=== PATIENT | female | born 1965 | race Caucasian/White ===

== ENCOUNTER 2020-04-22 16:08 | Observation (INO) | payer MEDICAID ==
[2020-04-22] MEDS ORDERED: Sodium Chloride 0.9% 10 ML Syringe FLUSH PRN (16:15)
[2020-04-22] MEDS ORDERED: Acetaminophen 325 MG Tab PO PRN (16:15)
[2020-04-22] MEDS ORDERED: Sodium Chloride 0.9% 1,000 ML IV SCH (16:30)
[2020-04-22] MEDS: Potassium Chloride Riders 20 MEQ in Premix Bag 1 BAG IV SCH ×2 (17:04→18:17)
[2020-04-22] MEDS: Folic Acid 1 MG Tab PO SCH (17:10)
[2020-04-22] MEDS: Potassium Chloride 10 MEQ Tab.ER PO SCH (17:10)
[2020-04-22] MEDS: Thiamine 100 MG Tab PO SCH (17:10)
--- NOTE | 2020-04-22 17:12 | PCM.HP.2 ---
H&P History of Present Illness - General Date of Service: 04/22/20 Admit Problem/Dx: Admission Diagnosis/Problem Admission Diagnosis/Problem Hypokalemia Source of Information: Patient History Limitations: Reports: No Limitations - History of Present Illness Initial Comments - Free Text/Narative: Tricia is a 54 yr old female who came into the clinic today for a wellness exam. S he had complaints of: bilateral leg aching keeping her awake at night, bloating to abdomen with loss of appetite and post prandial nausea, pruritic rash to back, and weight loss. She has known alcoholism and she reports stopping drinking 2 weeks ago. On exam she has jaundice, hepatomegaly, ascites, and dermatitis. Lab studies show: PT 15.5, INR 1.4, Lipase 172, Blood Alcohol 0, Gluc 123, K 2.5, Na 137, Albumin 2.8, Alk Phos 228, AST 104, ALT 22, Total Bili 7.6, renal function WNL, Mag 1.7, WBC 11.1, RBC 2.8, Hgb 10.3, MCV 105.7, MCHC 34. Pending labs include GGTP, Vit B12, Ferritin, TSH, Vit D. She moved to [place] from [place] to live with her parents. Today she indicates she is moving to [place] to live with her sister. 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 She has a dog she is concerned about his care as he is over 80 lbs in the care of her elderly parents tonight. Onset of Symptoms: Reports: Gradual Duration of Symptoms: Reports: Chronic, Getting Worse Location: Reports: Other Quality: Reports: Ache Severity: Moderate Improves with: Reports: None Worsens with: Reports: None Context: Reports: Other Associated Symptoms: Reports: Loss of Appetite, Nausea/Vomiting, Rash - Related Data Allergies/Adverse Reactions: Allergies Allergy/AdvReac Type Severity Reaction Status Date / Time No Known Allergies Allergy Verified 04/01/19 13:41 Home Medications: Home Meds Ibuprofen [Motrin] 600 mg PO Q4HR PRN 04/01/19 [History] Triamcinolone Acetonide [Kenalog 0.1% Crm] 1 applic BID PRN 04/01/19 [History] Past Medical History Genitourinary History: Reports: Other (See Below) Other Genitourinary History: dysfuncitonal uterine bleeding Psychiatric History: Reports: Addiction Dermatologic History: Reports: Other (See Below) Other Dermatologic History: rash Social & Family History - Family History Cardiac: Reports: Hypertension, Pacemaker Respiratory: Reports: Sleep Apnea - Living Situation & Occupation Living situation: Reports: Occupation: Unemployed (living with parents currently) H&P Review of Systems - Review of Systems: Review Of Systems: See Below General: Reports: Malaise, Decreased Appetite, Weight Loss HEENT: Reports: No Symptoms Pulmonary: Reports: No Symptoms Cardiovascular: Reports: No Symptoms Gastrointestinal: Reports: Abdominal Pain, Decreased Appetite, Distension, Nausea Genitourinary: Reports: No Symptoms Musculoskeletal: Reports: Leg Pain Skin: Reports: Jaundice Psychiatric: Reports: Other (alcohol abuse, stopped 2 weeks ago) Neurological: Reports: No Symptoms Hematologic/Lymphatic: Reports: Other (epistaxis) Immunologic: Reports: No Symptoms Exam - Exam Exam: See Below - Exam General: Alert, Oriented, Cooperative HEENT: Conjunctiva Clear, EACs Clear, Hearing Intact, Mucosa Moist & [place] Neck: Supple, Trachea Midline Lungs: Clear to Auscultation, Normal Respiratory Effort Cardiovascular: Regular Rate, Regular Rhythm, Normal S1, Normal S2 GI/Abdominal Exam: Normal Bowel Sounds, Soft, Distended, Hepatomegaly Extremities: Normal Inspection, Normal Range of Motion, Non-Tender, No Pedal Edema, Normal Capillary Refill, Leg Pain, Mottled Peripheral Pulses: 2+: Dorsalis Pedis (L), Dorsalis Pedis (R) Skin: Warm, Dry, Intact Neurological: Normal Gait, Normal Speech Neuro Extensive - Mental Status: Alert, Oriented x3, Normal Mood/Affect, Normal Cognition, Memory Intact Neuro Extensive - Motor, Sensory, Reflexes: Normal Gait *Q Meaningful Use (ADM) - VTE *Q VTE Anticoagulation Contraindications: Med/TX Not Indicated/Need - Problem List (1) Hypokalemia SNOMED Code(s): 71156757 ICD Code: E87.6 - HYPOKALEMIA Status: Acute Priority: High Current Visit: Yes (2) Cirrhosis of liver SNOMED Code(s): 11254959 ICD Code: K74.60 - UNSPECIFIED CIRRHOSIS OF LIVER Status: Chronic Priority: Medium Current Visit: Yes Qualifiers: Hepatic cirrhosis type: alcoholic cirrhosis Ascites presence: with ascites Qualified Code(s): K70.31 - Alcoholic cirrhosis of liver with ascites (3) Leg pain, diffuse SNOMED Code(s): 65321564 ICD Code: M79.606 - PAIN IN LEG, UNSPECIFIED Status: Chronic Priority: Medium Current Visit: Yes Qualifiers: Laterality: unspecified laterality Qualified Code(s): M79.606 - Pain in leg, unspecified (4) Psoriasis SNOMED Code(s): 7738103 ICD Code: L40.9 - PSORIASIS, UNSPECIFIED Status: Chronic Priority: Low Current Visit: Yes Problem List Initiated/Reviewed/Updated: Yes Orders Last 24hrs: Active Orders 24 hr Category Date Time Status Patient Status [ADT] Routine ADT 04/22/20 16:15 Ordered Cardiac Monitoring [RC] CONTINUOUS Care 04/22/20 16:17 Ordered EKG 12 Lead [EKG Documentation Completion] [RC] STAT Care 04/22/20 16:21 Ordered Notify Provider Vital Signs [RC] ASDIRECTED Care 04/22/20 16:17 Ordered Oxygen Therapy [RC] PRN Care 04/22/20 16:15 Ordered Up ad Adelina [RC] ASDIRECTED Care 04/22/20 16:15 Ordered VTE/DVT Education [RC] PER UNIT ROUTINE Care 04/22/20 16:15 Ordered Vital Signs [RC] Q4H Care 04/22/20 16:15 Ordered Regular Diet [DIET] Diet 04/22/20 Dinner Ordered CBC WITH AUTO DIFF [HEME] AM Lab 04/23/20 05:11 Ordered COMPREHENSIVE METABOLIC PN,CMP [CHEM] AM Lab 04/23/20 05:11 Ordered CULTURE BLOOD [BC] Stat Lab 04/22/20 16:20 Ordered CULTURE BLOOD [BC] Stat Lab 04/22/20 16:20 Ordered POTASSIUM,K [CHEM] Timed Lab 04/22/20 22:00 Ordered Acetaminophen [TylenoL] Med 04/22/20 16:15 Ordered 650 mg PO Q4H PRN Folic Acid Med 04/23/20 08:00 Ordered 1 mg PO DAILY Gabapentin [Neurontin] Med 04/22/20 20:00 Ordered 300 mg PO BID Nicotine [Habitrol] Med 04/23/20 08:00 Ordered 21 mg TRDERM DAILY Potassium Chloride Riders [KCL in Water 20 MEQ/50 ML] Med 04/22/20 16:30 Ordered 20 meq Premix Bag 1 bag IV Q2H Potassium Chloride [Klor-Con 10] Med 04/22/20 18:00 Ordered 40 meq PO BIDMEALS Sodium Chloride 0.9% @ 150 MLS/HR (1000ml) Med 04/22/20 16:30 Ordered Sodium Chloride 0.9% [Normal Saline] 1,000 ml IV ASDIRECTED Sodium Chloride 0.9% [Saline Flush] Med 04/22/20 16:15 Ordered 10 ml FLUSH ASDIRECTED PRN Thiamine [Vitamin B-1] Med 04/22/20 20:00 Ordered 100 mg PO BEDTIME Triamcinolone Acetonide [Triamcinolone Acetonide 0.1% Med 04/22/20 20:00 Ordered Crm] 15 gm TOP BID Anticoagulation Contraindications VTE [AST] Per Unit Oth 04/22/20 16:15 Ordered Routine Blood Culture x2 Reflex Set [OM.PC] Stat Ot 04/22/20 16:15 Ordered Saline Lock Insert [OM.PC] Routine Oth 04/22/20 16:15 Ordered Resuscitation Status Routine Resus Stat 04/22/20 16:15 Ordered Medication Orders Acetaminophen (Tylenol) 650 mg PO Q4H PRN PRN Reason: Pain (Mild 1-3)/fever Folic Acid (Folic Acid) 1 mg PO DAILY [facility] Gabapentin (Neurontin) 300 mg PO BID [facility] Potassium Chloride 20 meq/ (Premix) 50 mls @ 50 mls/hr IV Q2H [facility] Stop: 04/22/20 19:29 Sodium Chloride (Normal Saline) 1,000 mls @ 150 mls/hr IV ASDIRECTED [facility] Last Admin: 04/22/20 16:45 Dose: 150 mls/hr Documented by: DEPRROW Nicotine (Habitrol) 21 mg TRDERM DAILY@1800 [facility] Potassium Chloride (Klor-Con 10) 40 meq PO BIDMEALS [facility] Sodium Chloride (Saline Flush) 10 ml FLUSH ASDIRECTED PRN PRN Reason: Keep Vein Open Thiamine HCl (Vitamin B-1) 100 mg PO DAILY [facility] Triamcinolone Acetonide (Triamcinolone Acetonide 0.1% Crm) 0 gm TOP BID [facility] Assessment/Plan Comment:: She is admitted Observation Status to replace potassium and monitor her telemetry while doing so. KCL 20 mEq IV x 2 tonight. KCL 40 mEq orally BID (2 doses tonight). Check Potassium level at 10 pm and repeat lab in AM. EKG Start Gabapentin for leg pain. Blood cultures. Get RUQ US on out pt if not available now. I contacted [facility] who had no further recommendations. Stop alcohol and recheck lab in 2 weeks. Anticipate DC tomorrow on oral K. - Mortality Measure Prognosis:: Good
--- NOTE | 2020-04-22 17:40 | PCM.HP.2 ---
H&P History of Present Illness - General Date of Service: 04/22/20 Admit Problem/Dx: Admission Diagnosis/Problem Admission Diagnosis/Problem Hypokalemia Source of Information: Patient History Limitations: Reports: No Limitations - History of Present Illness Onset of Symptoms: Reports: Gradual Duration of Symptoms: Reports: Chronic, Getting Worse Location: Reports: Other Quality: Reports: Ache Severity: Severe Improves with: Reports: None Worsens with: Reports: None Context: Reports: Other Associated Symptoms: Reports: Loss of Appetite, Malaise, Nausea/Vomiting, Rash - Related Data Allergies/Adverse Reactions: Allergies Allergy/AdvReac Type Severity Reaction Status Date / Time No Known Allergies Allergy Verified 04/01/19 13:41 Home Medications: Home Meds Ibuprofen [Motrin] 600 mg PO Q4HR PRN 04/01/19 [History] Triamcinolone Acetonide [Kenalog 0.1% Crm] 1 applic BID PRN 04/01/19 [History] Past Medical History Genitourinary History: Reports: Other (See Below) Other Genitourinary History: dysfuncitonal uterine bleeding Psychiatric History: Reports: Addiction Dermatologic History: Reports: Other (See Below) Other Dermatologic History: rash Social & Family History - Family History Cardiac: Reports: Hypertension, Pacemaker Respiratory: Reports: Sleep Apnea - Living Situation & Occupation Living situation: Reports: Occupation: Unemployed (living with parents currently) H&P Review of Systems - Review of Systems: Review Of Systems: See Below General: Reports: Malaise, Fatigue, Decreased Appetite, Weight Loss HEENT: Reports: No Symptoms Pulmonary: Reports: No Symptoms Cardiovascular: Reports: No Symptoms Gastrointestinal: Reports: Abdominal Pain, Anorexia, Decreased Appetite, Distension, Nausea Genitourinary: Reports: No Symptoms Musculoskeletal: Reports: Leg Pain Skin: Reports: Jaundice, Pruritis, Rash Psychiatric: Reports: Other (alcohol abuse) Neurological: Reports: No Symptoms Hematologic/Lymphatic: Reports: Easy Bleeding, Other (epistaxis) Immunologic: Reports: No Symptoms Exam - Exam Exam: See Below - Vital Signs Vital Signs: Last Vital Signs Temp 36.7 C 04/22/20 16:21 Pulse 88 04/22/20 16:21 Resp 16 04/22/20 16:21 BP 105/60 04/22/20 16:21 Pulse Ox 100 04/22/20 16:21 Weight: 55.61 kg - Exam General: Alert, Oriented, Cooperative HEENT: Conjunctiva Clear, EACs Clear, Hearing Intact Neck: Supple, Trachea Midline Lungs: Clear to Auscultation, Normal Respiratory Effort Cardiovascular: Regular Rate, Regular Rhythm, Normal S1, Normal S2 GI/Abdominal Exam: Normal Bowel Sounds, Soft, Distended, Hepatomegaly Extremities: Normal Inspection, Normal Range of Motion, Non-Tender, No Pedal Edema, Normal Capillary Refill, Mottled Peripheral Pulses: 2+: Dorsalis Pedis (L), Dorsalis Pedis (R) Skin: Warm, Dry, Intact, Rash Neurological: Normal Gait, Normal Speech Neuro Extensive - Mental Status: Alert, Oriented x3, Normal Mood/Affect, Normal Cognition, Memory Intact Neuro Extensive - Motor, Sensory, Reflexes: Normal Gait Psychiatric: Alert, Normal Affect, Normal Mood Sepsis Event Note - Focused Exam Vital Signs: Vital Signs Temp Pulse Resp BP Pulse Ox 04/22/20 16:21 36.7 C 88 16 105/60 100 *Q Meaningful Use (ADM) - VTE *Q VTE Anticoagulation Contraindications: Med/TX Not Indicated/Need - Problem List (1) Hypokalemia SNOMED Code(s): 87882411 ICD Code: E87.6 - HYPOKALEMIA Status: Acute Priority: High Current Visit: Yes (2) Cirrhosis of liver SNOMED Code(s): 88611526 ICD Code: K74.60 - UNSPECIFIED CIRRHOSIS OF LIVER Status: Chronic Priority: Medium Current Visit: Yes Qualifiers: Hepatic cirrhosis type: alcoholic cirrhosis Ascites presence: with ascites Qualified Code(s): K70.31 - Alcoholic cirrhosis of liver with ascites (3) Leg pain, diffuse SNOMED Code(s): 22735892 ICD Code: M79.606 - PAIN IN LEG, UNSPECIFIED Status: Chronic Priority: Medium Current Visit: Yes Qualifiers: Laterality: unspecified laterality Qualified Code(s): M79.606 - Pain in leg, unspecified (4) Psoriasis SNOMED Code(s): 0424841 ICD Code: L40.9 - PSORIASIS, UNSPECIFIED Status: Chronic Priority: Low Current Visit: Yes Problem List Initiated/Reviewed/Updated: Yes Orders Last 24hrs: Active Orders 24 hr Category Date Time Status Patient Status [ADT] Routine ADT 04/22/20 16:15 Ordered Cardiac Monitoring [RC] CONTINUOUS Care 04/22/20 16:17 Ordered EKG 12 Lead [EKG Documentation Completion] [RC] STAT Care 04/22/20 16:21 Ordered Notify Provider Vital Signs [RC] ASDIRECTED Care 04/22/20 16:17 Ordered Oxygen Therapy [RC] PRN Care 04/22/20 16:15 Ordered Up ad Adelina [RC] ASDIRECTED Care 04/22/20 16:15 Ordered VTE/DVT Education [RC] PER UNIT ROUTINE Care 04/22/20 16:15 Ordered Vital Signs [RC] Q4H Care 04/22/20 16:15 Ordered Regular Diet [DIET] Diet 04/22/20 Dinner Ordered CBC WITH AUTO DIFF [HEME] AM Lab 04/23/20 05:11 Ordered COMPREHENSIVE METABOLIC PN,CMP [CHEM] AM Lab 04/23/20 05:11 Ordered CULTURE BLOOD [BC] Stat Lab 04/22/20 16:20 Ordered CULTURE BLOOD [BC] Stat Lab 04/22/20 16:20 Ordered POTASSIUM,K [CHEM] Timed Lab 04/22/20 22:00 Ordered Acetaminophen [TylenoL] Med 04/22/20 16:15 Ordered 650 mg PO Q4H PRN Folic Acid Med 04/23/20 08:00 Ordered 1 mg PO DAILY Gabapentin [Neurontin] Med 04/22/20 20:00 Ordered 300 mg PO BID Nicotine [Habitrol] Med 04/23/20 08:00 Ordered 21 mg TRDERM DAILY Potassium Chloride Riders [KCL in Water 20 MEQ/50 ML] Med 04/22/20 16:30 Ordered 20 meq Premix Bag 1 bag IV Q2H Potassium Chloride [Klor-Con 10] Med 04/22/20 18:00 Ordered 40 meq PO BIDMEALS Sodium Chloride 0.9% @ 150 MLS/HR (1000ml) Med 04/22/20 16:30 Ordered Sodium Chloride 0.9% [Normal Saline] 1,000 ml IV ASDIRECTED Sodium Chloride 0.9% [Saline Flush] Med 04/22/20 16:15 Ordered 10 ml FLUSH ASDIRECTED PRN Thiamine [Vitamin B-1] Med 04/22/20 20:00 Ordered 100 mg PO BEDTIME Triamcinolone Acetonide [Triamcinolone Acetonide 0.1% Med 04/22/20 20:00 Ordered Crm] 15 gm TOP BID Anticoagulation Contraindications VTE [AST] Per Unit Oth 04/22/20 16:15 Ordered Routine Blood Culture x2 Reflex Set [OM.PC] Stat Ot 04/22/20 16:15 Ordered Saline Lock Insert [OM.PC] Routine Ot 04/22/20 16:15 Ordered Resuscitation Status Routine Resus Stat 04/22/20 16:15 Ordered Medication Orders Acetaminophen (Tylenol) 650 mg PO Q4H PRN PRN Reason: Pain (Mild 1-3)/fever Folic Acid (Folic Acid) 1 mg PO DAILY [facility] Last Admin: 04/22/20 17:10 Dose: 1 mg Documented by: Gabapentin (Neurontin) 300 mg PO BID [facility] Potassium Chloride 20 meq/ (Premix) 50 mls @ 50 mls/hr IV Q2H [facility] Stop: 04/22/20 19:29 Last Admin: 04/22/20 17:04 Dose: 50 mls/hr Documented by: Sodium Chloride (Normal Saline) 1,000 mls @ 150 mls/hr IV ASDIRECTED [facility] Last Admin: 04/22/20 16:45 Dose: 150 mls/hr Documented by: DEPRROW Nicotine (Habitrol) 21 mg TRDERM DAILY@1800 [facility] Last Admin: 04/22/20 17:03 Dose: 21 mg Documented by: Potassium Chloride (Klor-Con 10) 40 meq PO BIDMEALS [facility] Last Admin: 04/22/20 17:10 Dose: 40 meq Documented by: Sodium Chloride (Saline Flush) 10 ml FLUSH ASDIRECTED PRN PRN Reason: Keep Vein Open Thiamine HCl (Vitamin B-1) 100 mg PO DAILY [facility] Last Admin: 04/22/20 17:10 Dose: 100 mg Documented by: Triamcinolone Acetonide (Triamcinolone Acetonide 0.1% Crm) 0 gm TOP BID [facility] Assessment/Plan Comment:: She is admitted Observation Status to replace potassium and monitor her telemetry while doing so. KCL 20 mEq IV x 2 tonight. KCL 40 mEq orally BID (2 doses tonight). Check Potassium level at 10 pm and repeat lab in AM. EKG Start Gabapentin for leg pain. Blood cultures. Get RUQ US on out pt if not available now. I contacted [facility] who had no further recommendations. Stop a lcohol and recheck lab in 2 weeks. Anticipate DC tomorrow on oral K.
[2020-04-22] MEDS ORDERED: Nicotine 21 MG/24 Hr Patch TRDERM SCH (18:00)
[2020-04-22] MEDS: Gabapentin 300 MG Cap PO SCH (20:17)
[2020-04-22] MEDS: Triamcinolone Acetonide 0.1% Crm 15 GM Tube TOP SCH (20:19)
[2020-04-23 07:37] LABS: CHLORIDE,CL 102 mmol/L (98-107); SODIUM,NA 137 mmol/L (136-145)
[2020-04-23] MEDS: Thiamine 100 MG Tab PO SCH (07:43)
[2020-04-23] MEDS: Gabapentin 300 MG Cap PO SCH (07:43)
[2020-04-23] MEDS: Potassium Chloride 10 MEQ Tab.ER PO SCH (07:43)
[2020-04-23] MEDS: Folic Acid 1 MG Tab PO SCH (07:43)
[2020-04-23] MEDS: Triamcinolone Acetonide 0.1% Crm 15 GM Tube TOP SCH (07:43)
[2020-04-23] MEDS ORDERED: Ibuprofen 200 MG Tab PO PRN (07:52)
--- NOTE | 2020-04-23 14:19 | PCM.DCSUM1 ---
Discharge Summary - Hospital Course Free Text/Narrative:: Tricia was admitted overnight with hypokalemia, alcoholic cirrhosis, leg pain, and itching. She was given Potassium both infusion and orally. Her potassium michael to 3.5 at 10 pm and 4.0 this morning. She was started on Gabapentin for leg pain which she felt was helpful. She feels she can stop alcohol use on her own. She indicates stopping 2 weeks ago. Manager Transportation [employer] did visit with her and offered her business card if she changes her mind about alcohol treatment. She will have an Abdominal US on Sunday along with a repeat K level. I will see her in 2 weeks with repeat lab. She is referred to Gastroenterology. She does have anemia with macrocytosis. Ferritin and Vitamin B12 levels are elevated. Will get iron studies outpatient. Ammonia level drawn this morning and pending. She is given Lactulose 15 ml daily for ascites and constipation, Ativan 10 tablets in the event of onset of withdrawal symptoms this weekend with instructions she needs to be seen if occurs, Potassium 10 mEq daily, and will increase Gabapentin to 300 mg TID. She requests a Nicoderm 24 mg/day patch to continue so Rx sent. She was DC to her parents care. HPI Initial Comments: Hypokalemia and alcohol cirrhosis Brief History: Hypokalemia and alcohol cirrhosis. Diagnosis: Stroke: No Modified Santy Scale: No Signif.Disability Despite Sympt.Able to Carry Out Usual Act./Duties Modified Ambler Scale Score: 1 - Discharge Data Discharge Date: 04/23/20 Discharge Disposition: Home, Self-Care 01 Condition: Fair - Referral to Home Health Primary Care Physician: Tasia Cox PA-C - Discharge Diagnosis/Problem(s) (1) Hypokalemia SNOMED Code(s): 66293840 ICD Code: E87.6 - HYPOKALEMIA Status: Acute Priority: High (2) Cirrhosis of liver SNOMED Code(s): 19928630 ICD Code: K74.60 - UNSPECIFIED CIRRHOSIS OF LIVER Status: Chronic Priority: Medium Qualifiers: Hepatic cirrhosis type: alcoholic cirrhosis Ascites presence: with ascites Qualified Code(s): K70.31 - Alcoholic cirrhosis of liver with ascites (3) Leg pain, diffuse SNOMED Code(s): 47189930 ICD Code: M79.606 - PAIN IN LEG, UNSPECIFIED Status: Chronic Priority: Medium Qualifiers: Laterality: unspecified laterality Qualified Code(s): M79.606 - Pain in leg, unspecified (4) Psoriasis SNOMED Code(s): 9078209 ICD Code: L40.9 - PSORIASIS, UNSPECIFIED Status: Chronic Priority: Low - Patient Instructions Diet: Usual Diet as Tolerated Diet, Other: Encourage high potassium diet such as orange juice, bananas, etc. Activity: As Tolerated Notify Provider of: Increased Pain, Nausea and/or Vomiting Other/Special Instructions: Needs repeat potassium level on Sunday at clinic. Needs repeat office visit in 2 weeks with full lab one day prior. See Radiology Specialist in [place]. I will schedule through here. Take Lactulose 15 ml each day. This helps with getting bowels working and to reduce fluid in belly. Increase Gabapentin to 300 mg 3 times a day. Have Ultrasound of abdomen on Sunday at hospital. Continue to use nicotine patches at home to avoid tobacco. No alcohol. If tylenol is used, no more than 2000 mg per 24 hours. Ativan 0.5 mg up to 2 times a day as needed for symptoms of possible detox (jittery, heart racing, nervousness, etc.) If this occurs should also be seen. Potassium 10 mEq once a day. - Discharge Plan *PRESCRIPTION DRUG MONITORING PROGRAM REVIEWED*: No *COPY OF PRESCRIPTION DRUG MONITORING REPORT IN PATIENT PRASAD: No Prescriptions/Med Rec: LORazepam [Ativan] 0.5 mg PO BID PRN #10 tablet PRN Reason: jittery, nervousness Nicotine [Habitrol] 21 mg TRDERM DAILY@1800 #30 patch Potassium Chloride [Klor-Con 10] 10 meq PO DAILY #30 tab.er Tobacco Cessation Medication: Prescription Given Home Medications: Home Meds Triamcinolone Acetonide [Kenalog 0.1% Crm] 1 applic TOP BID PRN 04/01/19 [History] Betamethasone Dipropionate [Diprosone 0.05% Crm] 1 applic TOP BID PRN 04/22/20 [History] Betamethasone Dipropionate [Diprosone 0.05% Oint] 1 applic TOP BID 04/22/20 [History] Non-Formulary Medication [NF Drug] 1 gm VAG ASDIRECTED 04/22/20 [History] Folic Acid 1 mg PO DAILY tablet 04/23/20 [Rx] Gabapentin [Neurontin] 300 mg PO TID cap 04/23/20 [Rx] LORazepam [Ativan] 0.5 mg PO BID PRN #10 tablet 04/23/20 [Rx] Nicotine [Habitrol] 21 mg TRDERM DAILY@1800 #30 patch 04/23/20 [Rx] Potassium Chloride [Klor-Con 10] 10 meq PO DAILY #30 tab.er 04/23/20 [Rx] Thiamine [Vitamin B-1] 100 mg PO DAILY tablet 04/23/20 [Rx] Oxygen Therapy Mode: Room Air Patient Handouts: Hypokalemia - Discharge Summary/Plan Comment DC Time >30 min.: Yes - General Info Date of Service: 04/23/20 Functional Status: Reports: Pain Controlled, Tolerating Diet, Ambulating, Urinating - Review of Systems General: Reports: No Symptoms HEENT: Reports: No Symptoms Pulmonary: Reports: No Symptoms Cardiovascular: Reports: No Symptoms Gastrointestinal: Reports: No Symptoms Genitourinary: Reports: No Symptoms Musculoskeletal: Reports: Leg Pain Skin: Reports: Pruritis Neurological: Reports: No Symptoms Psychiatric: Reports: No Symptoms - Patient Data Vitals - Most Recent: Last Vital Signs Temp 36.6 C 04/23/20 10:00 Pulse 84 04/23/20 10:00 Resp 16 04/23/20 10:00 BP 90/51 L 04/23/20 10:00 Pulse Ox 100 04/23/20 10:00 Weight - Most Recent: 55.61 kg I&O - Last 24 hours: Intake & Output 04/22/20 04/23/20 04/23/20 22:59 06:59 14:59 Intake Total 610 150 360 Output Total 20 300 Balance 590 -150 360 Lab Results - Last 24 hrs: Laboratory Results - last 24 hr 04/22/20 04/22/20 04/23/20 Range/Units 16:38 21:57 06:30 WBC 9.4 (4.0-10.0) x10^3/uL RBC 2.57 L (4.00-5.50) x10^6/uL Hgb 9.4 L (12.0-16.0) g/dL Hct 27.1 L (33.0-47.0) % MCV 105.4 H (78.0-93.0) fL MCH 36.6 H (26.0-32.0) pg MCHC 34.7 (32.0-36.0) g/dL RDW Coeff of Deisy 17.3 H (10.0-15.0) % Plt Count 133 (130-400) x10^3/uL Neut % (Auto) 76.0 (50.0-80.0) % Lymph % (Auto) 11.2 L (25.0-50.0) % [place] % (Auto) 11.0 (2.0-11.0) % Eos % (Auto) 1.6 (0.0-4.0) % Baso % (Auto) 0.2 (0.2-1.2) % Sodium (136-145) mmol/L Potassium 3.5 (3.5-5.1) mmol/L Chloride (98-107) mmol/L Carbon Dioxide (21-32) mmol/L Anion Gap (5-15) mmol/L BUN (7-18) mg/dL Creatinine (0.55-1.02) mg/dL Est Cr Clr Drug Dosing mL/min Estimated GFR (MDRD) Glucose (74-106) mg/dL Calcium (8.5-10.1) mg/dL Corrected Calcium (8.5-10.1) mg/dL Total Bilirubin (0.2-1.0) mg/dL AST (15-37) U/L ALT (14-59) U/L Alkaline Phosphatase (46-116) U/L Total Protein (6.4-8.2) g/dL Albumin (3.4-5.0) g/dL Globulin Albumin/Globulin Ratio SARS CoV-2 RNA Rapid KOLBY Negative (NEGATIVE) 04/23/20 Range/Units 06:30 WBC (4.0-10.0) x10^3/uL RBC (4.00-5.50) x10^6/uL Hgb (12.0-16.0) g/dL Hct (33.0-47.0) % MCV (78.0-93.0) fL MCH (26.0-32.0) pg MCHC (32.0-36.0) g/dL RDW Coeff of Deisy (10.0-15.0) % Plt Count (130-400) x10^3/uL Neut % (Auto) (50.0-80.0) % Lymph % (Auto) (25.0-50.0) % [place] % (Auto) (2.0-11.0) % Eos % (Auto) (0.0-4.0) % Baso % (Auto) (0.2-1.2) % Sodium 137 (136-145) mmol/L Potassium 4.0 (3.5-5.1) mmol/L Chloride 102 (98-107) mmol/L Carbon Dioxide 28 (21-32) mmol/L Anion Gap 11.0 (5-15) mmol/L BUN 12 (7-18) mg/dL Creatinine 0.9 (0.55-1.02) mg/dL Est Cr Clr Drug Dosing 63.14 mL/min Estimated GFR (MDRD) > 60 Glucose 83 (74-106) mg/dL Calcium 8.5 (8.5-10.1) mg/dL Corrected Calcium 9.94 (8.5-10.1) mg/dL Total Bilirubin 6.6 H (0.2-1.0) mg/dL AST 107 H (15-37) U/L ALT 23 (14-59) U/L Alkaline Phosphatase 222 H (46-116) U/L Total Protein 7.0 (6.4-8.2) g/dL Albumin 2.2 L (3.4-5.0) g/dL Globulin 4.8 Albumin/Globulin Ratio 0.46 SARS CoV-2 RNA Rapid KOLBY (NEGATIVE) Med Orders - Current: Current Medications Discontinued Medications Acetaminophen (Tylenol) 650 mg PO Q4H PRN PRN Reason: Pain (Mild 1-3)/fever Last Admin: 04/23/20 05:09 Dose: 650 mg Documented by: Folic Acid (Folic Acid) 1 mg PO DAILY [facility] Last Admin: 04/23/20 07:43 Dose: 1 mg Documented by: Gabapentin (Neurontin) 300 mg PO BID [facility] Last Admin: 04/23/20 07:43 Dose: 300 mg Documented by: Potassium Chloride 20 meq/ (Premix) 50 mls @ 50 mls/hr IV Q2H [facility] Stop: 04/22/20 19:29 Last Admin: 04/22/20 18:17 Dose: 50 mls/hr Documented by: Sodium Chloride (Normal Saline) 1,000 mls @ 150 mls/hr IV ASDIRECTED [facility] Last Admin: 04/22/20 16:45 Dose: 150 mls/hr Documented by: Ibuprofen (Motrin) 600 mg PO Q6HR PRN PRN Reason: Pain Nicotine (Habitrol) 21 mg TRDERM DAILY@1800 [facility] Last Admin: 04/22/20 17:03 Dose: 21 mg Documented by: Potassium Chloride (Klor-Con 10) 40 meq PO BIDMEALS [facility] Last Admin: 04/23/20 07:43 Dose: 40 meq Documented by: Sodium Chloride (Saline Flush) 10 ml FLUSH ASDIRECTED PRN PRN Reason: Keep Vein Open Last Admin: 04/22/20 20:21 Dose: 10 ml Documented by: Thiamine HCl (Vitamin B-1) 100 mg PO DAILY [facility] Last Admin: 04/23/20 07:43 Dose: 100 mg Documented by: Triamcinolone Acetonide (Triamcinolone Acetonide 0.1% Crm) 0 gm TOP BID [facility] Last Admin: 04/23/20 07:43 Dose: 1 applic Documented by: - Exam General: Reports: Alert, Oriented, Cooperative HEENT: Reports: Mucous Membr. Moist/[place] Lungs: Reports: Clear to Auscultation, Normal Respiratory Effort Cardiovascular: Reports: Regular Rate, Regular Rhythm GI/Abdominal Exam: Normal Bowel Sounds, Soft, Distended, Hepatomegaly Extremities: Normal Inspection Skin: Reports: Warm, Dry Neurological: Reports: No New Focal Deficit Psy/Mental Status: Reports: Alert, Normal Affect, Normal Mood *Q Meaningful Use (DIS) - VTE *Q VTE Anticoagulation Contraindications: Med/TX Not Indicated/Need
== END 2020-04-23 13:15 | disposition home or self-care (01) ==
LOC: VM.MS 16:15
PROVIDERS: ADMIT Physician Assistant; ATTEND Physician Assistant
DX: E87.6 Hypokalemia (principal); K70.31 Alcoholic cirrhosis of liver with ascites; M79.606 Pain in leg, unspecified; L40.9 Psoriasis, unspecified; Z20.822 Contact with and (suspected) exposure to COVID-19; Z79.899 Other long term (current) drug therapy
CPT/HCPCS: 36415; 80053; 82140; 84132; 85025; 87040; 93005; 96365; 96366; A9270-GY; G0378; G0379; J3480; J7030; U0002

== ENCOUNTER 2020-05-10 22:36 | Emergency (ER) | payer MEDICAID ==
--- NOTE | 2020-05-11 07:27 | EDM.PDOC ---
ED HPI GENERAL MEDICAL PROBLEM - General Chief Complaint: Skin Complaint Stated Complaint: GENERAL Time Seen by Provider: 05/10/20 22:45 Source of Information: Reports: Patient History Limitations: Reports: No Limitations - History of Present Illness INITIAL COMMENTS - FREE TEXT/NARRATIVE: Pt. states that she cut her leg when she was shaving it earlier in the AM. She states that she has been unable to fully control the bleeding. She is not anticoagulated, but has liver disease and has problems with clotting. Last INR was 1.3. Denies injury elsewhere. Tetanus is up to date. Onset: Today Onset Date: 05/11/20 Location: Reports: Lower Extremity, Right - Related Data Allergies Allergy/AdvReac Type Severity Reaction Status Date / Time No Known Allergies Allergy Verified 04/01/19 13:41 Home Meds: Home Meds Triamcinolone Acetonide [Kenalog 0.1% Crm] 1 applic TOP BID PRN 04/01/19 [History] Betamethasone Dipropionate [Diprosone 0.05% Crm] 1 applic TOP BID PRN 04/22/20 [History] Betamethasone Dipropionate [Diprosone 0.05% Oint] 1 applic TOP BID 04/22/20 [History] Non-Formulary Medication [NF Drug] 1 gm VAG ASDIRECTED 04/22/20 [History] Folic Acid 1 mg PO DAILY tablet 04/23/20 [Rx] Gabapentin [Neurontin] 300 mg PO TID cap 04/23/20 [Rx] LORazepam [Ativan] 0.5 mg PO BID PRN #10 tablet 04/23/20 [Rx] Nicotine [Habitrol] 21 mg TRDERM DAILY@1800 #30 patch 04/23/20 [Rx] Potassium Chloride [Klor-Con 10] 10 meq PO DAILY #30 tab.er 04/23/20 [Rx] Thiamine [Vitamin B-1] 100 mg PO DAILY tablet 04/23/20 [Rx] Past Medical History Gastrointestinal History: Reports: Cirrhosis Genitourinary History: Reports: Other (See Below) Other Genitourinary History: dysfuncitonal uterine bleeding Psychiatric History: Reports: Addiction Dermatologic History: Reports: Other (See Below) Other Dermatologic History: rash - Infectious Disease History Infectious Disease History: Reports: Chicken Pox Social & Family History - Family History Family Medical History: No Pertinent Family History Cardiac: Reports: Hypertension, Pacemaker Respiratory: Reports: Sleep Apnea - Tobacco Use Tobacco Use Status *Q: Current Every Day Tobacco User Years of Tobacco use: 20 Packs/Tins Daily: 0.5 - Caffeine Use Caffeine Use: Reports: Coffee, Soda - Recreational Drug Use Recreational Drug Use: No - Living Situation & Occupation Living situation: Reports: Occupation: Unemployed (living with parents currently) ED ROS GENERAL - Review of Systems Review Of Systems: See Below Constitutional: Reports: No Symptoms HEENT: Reports: No Symptoms Respiratory: Reports: No Symptoms Cardiovascular: Reports: No Symptoms Endocrine: Reports: No Symptoms GI/Abdominal: Reports: No Symptoms : Reports: No Symptoms Musculoskeletal: Reports: Other (superficial laceration) Skin: Reports: No Symptoms Neurological: Reports: No Symptoms Psychiatric: Reports: No Symptoms Hematologic/Lymphatic: Reports: No Symptoms Immunologic: Reports: No Symptoms ED EXAM, SKIN/RASH Exam: See Below Exam Limited By: No Limitations General Appearance: Alert, WD/WN, No Apparent Distress Extremities: Other (subcentimeter laceration/skin tear to R anterior lower leg that continues to bleed. ) Course - Vital Signs Last Recorded V/S: Last Vital Signs Temp 37.6 C 05/10/20 22:36 Pulse 96 05/10/20 22:36 Resp 18 05/10/20 22:36 BP 121/47 L 05/10/20 22:36 Pulse Ox 100 05/10/20 22:36 - Re-Assessments/Exams Free Text/Narrative Re-Assessment/Exam: 05/11/20 07:26 Collagen hemostatic dressing was placed on R lower leg and secured with coban. No further active bleeding noted. Departure - Departure Time of Disposition: 23:15 Disposition: Home, Self-Care 01 Clinical Impression: Laceration - Discharge Information Instructions: Laceration Care, Adult Referrals: Tasia Cox PA-C [Primary Care Provider] - Forms: ED Department Discharge Additional Instructions: Keep dressing on until Sunday AM. Keep dry until then. Return if it continues to bleed. Sepsis Event Note (ED) - Evaluation Sepsis Screening Result: No Definite Risk - Focused Exam Vital Signs: Vital Signs Temp Pulse Resp BP Pulse Ox 05/10/20 22:36 37.6 C 96 18 121/47 L 100 - Assessment/Plan Plan: Keep dressing on until Sunday AM. Keep dry until then. Return if it continues to bleed.
== END 2020-05-10 23:15 | disposition home or self-care (01) ==
LOC: VM.ED 22:36
DX: S81.811A Laceration without foreign body, right lower leg, initial encounter (principal); Z72.0 Tobacco use; Z79.899 Other long term (current) drug therapy; W27.8XXA Contact with other nonpowered hand tool, initial encounter
CPT/HCPCS: 99282; 99283

== ENCOUNTER 2020-07-15 11:14 | Emergency (ER) | payer MEDICAID ==
[2020-07-15] MEDS ORDERED: Sodium Chloride 0.9% 10 ML Syringe FLUSH PRN (11:45)
[2020-07-15] MEDS ORDERED: Morphine 4 MG/ML Syringe IVPUSH ONE ×2 (11:46→14:42)
[2020-07-15] MEDS ORDERED: Ondansetron 4 MG/2 ML SDV IVPUSH ONE (11:46)
[2020-07-15] MEDS: Sodium Chloride 0.9% 1,000 ML IV SCH ×2 (12:06→13:14)
[2020-07-15 12:49] LABS: ANION GAP 12.4 mmol/L (5-15)
[2020-07-15 13:05] LABS: BARBITURATE SCREEN,URINE NEGATIVE (NEGATIVE); BENZODIAZEPINES SCREEN,URINE NEGATIVE (NEGATIVE); EDDP,URINE SCREEN NEGATIVE (NEGATIVE); METHAMPHETAMINE SCREEN, URINE NEGATIVE (NEGATIVE); TCA SCREEN,URINE NEGATIVE (NEGATIVE); THC SCREEN,URINE 50 NG/ML NEGATIVE (NEGATIVE)
[2020-07-15] MEDS ORDERED: Magnesium Sulfate/Water 2 GM in Premix Bag 1 BAG IV ONE (13:18)
--- NOTE | 2020-07-15 14:48 | EDM.PDOC ---
ED HPI GENERAL MEDICAL PROBLEM - General Chief Complaint: Gastrointestinal Problem Stated Complaint: MED INCREASE Time Seen by Provider: 07/15/20 11:50 Source of Information: Reports: Patient History Limitations: Reports: No Limitations - History of Present Illness INITIAL COMMENTS - FREE TEXT/NARRATIVE: Pt. presents to ER with complaints of vomiting, diarrhea, nausea, and abdominal pain. Pt. states that she has been experiencing this for several days. She is on lactulose and has a history of ascites. Pt. states that she has been unable to hold down fluids. She states that her diarrhea has been voluminous. Denies any recent hospitalizations. No recent use of antibiotics. Pt. states that she also has low back pain and diffuse abdominal discomfort. It does not localize. She states that she has been taking oxycodone for this but only has 3 doses left, and states that the medication makes her nauseated. She denies any bloody stools. No melena or hematemesis. She denies any ill contacts. She denies any chest pain, shortness of breath, palpitations. No headache. She complains of aching in her lower extremities. Pt. states that she does have any appointment with GI tomorrow. Onset Date: 07/12/20 Location: Reports: Abdomen, Back, Lower Extremity, Left, Lower Extremity, Right, Generalized Associated Symptoms: Reports: Nausea/Vomiting, Weakness Abdominal Pain Score (Numeric/FACES): 10 - Related Data Allergies Allergy/AdvReac Type Severity Reaction Status Date / Time No Known Allergies Allergy Verified 07/15/20 12:51 Home Meds: Home Meds Triamcinolone Acetonide [Kenalog 0.1% Crm] 1 applic TOP BID PRN 04/01/19 [History] Betamethasone Dipropionate [Diprosone 0.05% Oint] 1 applic TOP BID 04/22/20 [History] Nicotine [Habitrol] 21 mg TRDERM DAILY@1800 #30 patch 04/23/20 [Rx] Clobetasol [Clobetasol Propionate 0.05%] 1 applic TOP BID 07/15/20 [History] Famotidine 10 mg PO DAILY 07/15/20 [History] Furosemide [Lasix] 20 mg PO DAILY 07/15/20 [History] Gabapentin [Neurontin] 600 mg PO TID 07/15/20 [History] Lactulose [Cephulac] 10 gm PO BID 07/15/20 [History] Menthol/Methyl Salicylate [Icy Hot Cream] 1 applic TP ASDIRECTED 07/15/20 [History] Potassium Chloride [Klor-Con 10] 40 meq PO DAILY 07/15/20 [History] Spironolactone [Aldactone] 100 mg PO DAILY 07/15/20 [History] diphenhydrAMINE HCL [Diphenhydramine HCl] 25 mg PO DAILY 07/15/20 [History] Past Medical History Gastrointestinal History: Reports: Cirrhosis Genitourinary History: Reports: Other (See Below) Other Genitourinary History: dysfuncitonal uterine bleeding. atrophic vaginitis Musculoskeletal History: Reports: Other (See Below) Other Musculoskeletal History: pain in lower extremities Psychiatric History: Reports: Addiction Dermatologic History: Reports: Other (See Below) Other Dermatologic History: rash - Infectious Disease History Infectious Disease History: Reports: Chicken Pox - Past Surgical History Female Surgical History: Reports: Other (See Below) Other Female Surgeries/Procedures: abnormal pap Social & Family History - Family History Family Medical History: No Pertinent Family History Cardiac: Reports: Hypertension, Pacemaker Respiratory: Reports: Sleep Apnea - Tobacco Use Tobacco Use Status *Q: Current Every Day Tobacco User Years of Tobacco use: 20 Packs/Tins Daily: 0.5 - Caffeine Use Caffeine Use: Reports: Coffee, Soda - Recreational Drug Use Recreational Drug Use: No - Living Situation & Occupation Living situation: Reports: Occupation: Unemployed (living with parents currently) ED ROS GENERAL - Review of Systems Review Of Systems: See Below Constitutional: Reports: Malaise, Weakness, Fatigue HEENT: Reports: No Symptoms Respiratory: Reports: No Symptoms Cardiovascular: Reports: No Symptoms Endocrine: Reports: No Symptoms GI/Abdominal: Reports: Abdominal Pain, Diarrhea, Nausea, Vomiting. Denies: Hematemesis, Hematochezia, Melena : Reports: No Symptoms Musculoskeletal: Reports: Leg Pain, Muscle Pain, Muscle Stiffness Skin: Reports: No Symptoms Neurological: Reports: No Symptoms Psychiatric: Reports: Anxiety Hematologic/Lymphatic: Reports: No Symptoms Immunologic: Reports: No Symptoms ED EXAM, GENERAL - Physical Exam Exam: See Below Exam Limited By: No Limitations General Appearance: Alert, WD/WN, No Apparent Distress Eye Exam: Bilateral Eye: PERRL Throat/Mouth: Normal Inspection, Normal Lips, Other (oral mucosa dry.) Head: Atraumatic, Normocephalic Neck: Normal Inspection, Supple, Non-Tender, Full Range of Motion Respiratory/Chest: No Respiratory Distress, Lungs Clear, No Accessory Muscle Use, Chest Non-Tender Cardiovascular: Normal Peripheral Pulses, Regular Rate, Rhythm GI/Abdominal: Soft, No Distention, Hepatomegaly, Other (diffusely tender throughout. ). No: Mass (Female) Exam: Deferred Rectal (Female) Exam: Deferred Extremities: Normal Inspection, Normal Range of Motion, Non-Tender, No Pedal Edema, Normal Capillary Refill Neurological: Alert, Oriented, CN II-XII Intact, Normal Cognition, Normal Reflexes, No Motor/Sensory Deficits Psychiatric: Normal Affect, Normal Mood Skin Exam: Warm, Dry, Intact, Pallor Course - Vital Signs Last Recorded V/S: Last Vital Signs Temp 37.2 C 07/15/20 11:39 Pulse 97 07/15/20 11:39 Resp 16 07/15/20 11:39 BP 111/42 L 07/15/20 11:39 Pulse Ox 98 07/15/20 11:39 - Orders/Labs/Meds Orders: Active Orders 24 hr Category Date Time Status Sodium Chloride 0.9% [Normal Saline] 1,000 ml Med 07/15/20 12:00 Active IV ASDIRECTED Sodium Chloride 0.9% [Saline Flush] Med 07/15/20 11:45 Active 10 ml FLUSH ASDIRECTED PRN Peripheral IV Insertion Adult [OM.PC] Routine Oth 07/15/20 11:46 Ordered Medication Orders Sodium Chloride (Normal Saline) 1,000 mls @ 1,000 mls/hr IV ASDIRECTED ROSANNA Last Infusion: 07/15/20 13:40 Dose: 400 mls/hr Documented by: Admin: 07/15/20 13:14 Dose: 1,000 mls/hr Documented by: Infusion: 07/15/20 13:06 Dose: 1,000 mls/hr Documented by: Admin: 07/15/20 12:06 Dose: 1,000 mls/hr Documented by: DARREL Sodium Chloride (Sodium Chloride 0.9% 10 Ml Syringe) 10 ml FLUSH ASDIRECTED PRN PRN Reason: Keep Vein Open Labs: Laboratory Tests 07/15/20 07/15/2007/15/21 Range/Units 12:18 12:18 12:18 WBC 7.3 (4.0-10.0) x10^3/uL RBC 2.47 L (4.00-5.50) x10^6/uL Hgb 9.0 L (12.0-16.0) g/dL Hct 26.4 L (33.0-47.0) % MCV 106.9 H (78.0-93.0) fL MCH 36.4 H (26.0-32.0) pg MCHC 34.1 (32.0-36.0) g/dL RDW Coeff of Deisy 16.5 H (10.0-15.0) % Plt Count 120 L (130-400) x10^3/uL Neut % (Auto) 72.2 (50.0-80.0) % Lymph % (Auto) 11.4 L (25.0-50.0) % [place] % (Auto) 15.4 H (2.0-11.0) % Eos % (Auto) 0.7 (0.0-4.0) % Baso % (Auto) 0.3 (0.2-1.2) % PT 15.9 H (9.9-12.5) SEC INR 1.4 L (2.0-3.5) APTT (25.6-32.8) SEC Sodium 132 L (136-145) mmol/L Potassium 4.4 (3.5-5.1) mmol/L Chloride 101 (98-107) mmol/L Carbon Dioxide 23 (21-32) mmol/L Anion Gap 12.4 (5-15) mmol/L BUN 17 (7-18) mg/dL Creatinine 1.0 (0.55-1.02) mg/dL Est Cr Clr Drug Dosing 56.83 mL/min Estimated GFR (MDRD) 58 Glucose 101 H (70-99) mg/dL Calcium 9.3 (8.5-10.1) mg/dL Corrected Calcium 10.7 H (8.5-10.1) mg/dL Magnesium 1.3 L (1.8-2.4) mg/dL Total Bilirubin 6.0 H (0.2-1.0) mg/dL AST 59 H (15-37) U/L ALT 23 (14-59) U/L Alkaline Phosphatase 89 (46-116) U/L Total Protein 7.3 (6.4-8.2) g/dL Albumin 2.3 L (3.4-5.0) g/dL Globulin 5.0 Albumin/Globulin Ratio 0.46 Amylase 39 (25-115) U/L Lipase 195 (73-393) U/L Urine Color (YELLOW) Urine Appearance (CLEAR) Urine pH (5.0-8.0) Ur Specific [place] Urine Protein (NEGATIVE) mg/dL Urine Glucose (UA) (NEGATIVE) mg/dL Urine Ketones (NEGATIVE) mg/dL Urine Occult Blood (NEGATIVE) Urine Nitrite (NEGATIVE) Urine Bilirubin (NEGATIVE) Urine Urobilinogen (0.2) EU/dL Ur Leukocyte Esterase (NEGATIVE) Urine RBC (NOT SEEN) /HPF Urine WBC (NOT SEEN) /HPF Ur Squamous Epith Cells (NOT SEEN) /HPF Amorphous Sediment Urine Bacteria (NOT SEEN) /HPF Urine Mucus (NOT SEEN) /LPF Urine Opiates Screen (NEGATIVE) Ur Buprenorphine Scrn (NEGATIVE) Ur Oxycodone Screen (NEGATIVE) Ur EDDP (Meth Metab) (NEGATIVE) Urine Methadone Screen (NEGATIVE) Ur Barbiturates Screen (NEGATIVE) Ur Tricyclics Screen (NEGATIVE) Ur Phencyclidine Scrn (NEGATIVE) Ur Amphetamine Screen (NEGATIVE) U Methamphetamines Scrn (NEGATIVE) Urine MDMA Screen (NEGATIVE) U Benzodiazepines Scrn (NEGATIVE) U Cocaine Metab Screen (NEGATIVE) U Marijuana (THC) Screen (NEGATIVE) 07/15/20 07/15/20 07/15/20 Range/Units 12:18 13:00 13:00 WBC (4.0-10.0) x10^3/uL RBC (4.00-5.50) x10^6/uL Hgb (12.0-16.0) g/dL Hct (33.0-47.0) % MCV (78.0-93.0) fL MCH (26.0-32.0) pg MCHC (32.0-36.0) g/dL RDW Coeff of Deisy (10.0-15.0) % Plt Count (130-400) x10^3/uL Neut % (Auto) (50.0-80.0) % Lymph % (Auto) (25.0-50.0) % [place] % (Auto) (2.0-11.0) % Eos % (Auto) (0.0-4.0) % Baso % (Auto) (0.2-1.2) % PT (9.9-12.5) SEC INR (2.0-3.5) APTT 31.2 (25.6-32.8) SEC Sodium (136-145) mmol/L Potassium (3.5-5.1) mmol/L Chloride (98-107) mmol/L Carbon Dioxide (21-32) mmol/L Anion Gap (5-15) mmol/L BUN (7-18) mg/dL Creatinine (0.55-1.02) mg/dL Est Cr Clr Drug Dosing mL/min Estimated GFR (MDRD) Glucose (70-99) mg/dL Calcium (8.5-10.1) mg/dL Corrected Calcium (8.5-10.1) mg/dL Magnesium (1.8-2.4) mg/dL Total Bilirubin (0.2-1.0) mg/dL AST (15-37) U/L ALT (14-59) U/L Alkaline Phosphatase (46-116) U/L Total Protein (6.4-8.2) g/dL Albumin (3.4-5.0) g/dL Globulin Albumin/Globulin Ratio Amylase (25-115) U/L Lipase (73-393) U/L Urine Color [place] H (YELLOW) Urine Appearance Slightly cloudy H (CLEAR) Urine pH 6.0 (5.0-8.0) Ur Specific [place] 1.025 Urine Protein 30 H (NEGATIVE) mg/dL Urine Glucose (UA) Negative (NEGATIVE) mg/dL Urine Ketones Negative (NEGATIVE) mg/dL Urine Occult Blood Negative (NEGATIVE) Urine Nitrite Negative (NEGATIVE) Urine Bilirubin Large H (NEGATIVE) Urine Urobilinogen 2.0 H (0.2) EU/dL Ur Leukocyte Esterase Negative (NEGATIVE) Urine RBC 0-5 (NOT SEEN) /HPF Urine WBC 0-5 (NOT SEEN) /HPF Ur Squamous Epith Cells Few H (NOT SEEN) /HPF Amorphous Sediment Occasional Urine Bacteria Rare (NOT SEEN) /HPF Urine Mucus Few H (NOT SEEN) /LPF Urine Opiates Screen Positive H (NEGATIVE) Ur Buprenorphine Scrn Negative (NEGATIVE) Ur Oxycodone Screen Positive H (NEGATIVE) Ur EDDP (Meth Metab) Negative (NEGATIVE) Urine Methadone Screen Negative (NEGATIVE) Ur Barbiturates Screen Negative (NEGATIVE) Ur Tricyclics Screen Negative (NEGATIVE) Ur Phencyclidine Scrn Negative (NEGATIVE) Ur Amphetamine Screen Negative (NEGATIVE) U Methamphetamines Scrn Negative (NEGATIVE) Urine MDMA Screen Negative (NEGATIVE) U Benzodiazepines Scrn Negative (NEGATIVE) U Cocaine Metab Screen Negative (NEGATIVE) U Marijuana (THC) Screen Negative (NEGATIVE) Meds: Medications Generic Name Dose Route Start Last Admin Trade Name Freq PRN Reason Stop Dose Admin Sodium Chloride 1,000 mls @ 1,000 mls/hr 07/15/20 12:00 07/15/20 13:40 Normal Saline IV 400 mls/hr ASDIRECTED ROSANNA Infusion Sodium Chloride 10 ml 07/15/20 11:45 Sodium Chloride 0.9% 10 Ml Syringe FLUSH ASDIRECTED PRN Keep Vein Open Discontinued Medications Generic Name Dose Route Start Last Admin Trade Name Freq PRN Reason Stop Dose Admin Magnesium Sulfate 2 gm/ Premix 50 mls @ 50 mls/hr 07/15/20 13:18 07/15/20 13:43 IV 07/15/20 14:17 50 mls/hr ONETIME ONE Administration Morphine Sulfate 4 mg 07/15/20 11:46 07/15/20 12:07 Morphine 4 Mg/Ml Syringe IVPUSH 07/15/20 11:47 4 mg ONETIME ONE Administration Morphine Sulfate 4 mg 07/15/20 14:42 07/15/20 14:50 Morphine 4 Mg/Ml Syringe IVPUSH 07/15/20 14:43 4 mg ONETIME ONE Administration Ondansetron HCl 4 mg 07/15/20 11:46 07/15/20 12:07 Ondansetron 4 Mg/2 Ml Sdv IVPUSH 07/15/20 11:47 4 mg ONETIME ONE Administration - Re-Assessments/Exams Free Text/Narrative Re-Assessment/Exam: IV access established. Pt. was given a total of 2 liters of NS. She was given magnesium 2gm IV. Pt. was given zofran IV 4mg and reported significant improvement in nausea/vomiting. She was also given 2 small doses of IV morphine with good results in pain control. Departure - Departure Time of Disposition: 19:38 Disposition: Home, Self-Care 01 Clinical Impression: Nausea & vomiting, Diarrhea - Discharge Information Instructions: Ondansetron oral dissolving tablet, Nausea and Vomiting, Adult, [id number] Referrals: Tasia Cox PA-C [Primary Care Provider] - Forms: ED Department Discharge Additional Instructions: Zofran ODT 1 every 6 hours as needed for nausea/vomiting Oxycodone 5mg every 4-6 hours as needed for pain. Take the zofran before you take the oxycodone. Once the nausea and vomiting is controlled, you can take the oxycodone for pain. Follow-up in clinic as planned tomorrow. Sepsis Event Note (ED) - Evaluation Sepsis Screening Result: No Definite Risk - Focused Exam Vital Signs: Vital Signs Temp Pulse Resp BP Pulse Ox 07/15/20 11:39 37.2 C 97 16 111/42 L 98 - My Orders Last 24 Hours: My Active Orders 07/15/20 11:45 Sodium Chloride 0.9% [Saline Flush] 10 ml FLUSH ASDIRECTED PRN 07/15/20 11:46 Peripheral IV Insertion Adult [OM.PC] Routine 07/15/20 12:00 Sodium Chloride 0.9% [Normal Saline] 1,000 ml IV ASDIRECTED - Assessment/Plan Last 24 Hours: My Active Orders 07/15/20 11:45 Sodium Chloride 0.9% [Saline Flush] 10 ml FLUSH ASDIRECTED PRN 07/15/20 11:46 Peripheral IV Insertion Adult [OM.PC] Routine 07/15/20 12:00 Sodium Chloride 0.9% [Normal Saline] 1,000 ml IV ASDIRECTED Plan: Zofran ODT 1 every 6 hours as needed for nausea/vomiting Oxycodone 5mg every 4-6 hours as needed for pain. Take the zofran before you take the oxycodone. Once the nausea and vomiting is controlled, you can take the oxycodone for pain. Follow-up in clinic as planned tomorrow.
== END 2020-07-15 15:00 | disposition home or self-care (01) ==
LOC: VM.ED 11:14
DX: R11.2 Nausea with vomiting, unspecified (principal); R19.7 Diarrhea, unspecified
CPT/HCPCS: 36415; 80053; 80305-QW; 81001; 82150; 83690; 83735; 85025; 85610; 85730; 96365; 96375; 96376; 99284; 99284-25; J2270; J2405; J3475; J7030

== ENCOUNTER 2020-07-16 04:00 | Emergency (ER) | payer MEDICAID ==
[2020-07-16] MEDS ORDERED: Sodium Chloride 0.9% 10 ML Syringe FLUSH PRN (04:13)
[2020-07-16] MEDS: Sodium Chloride 0.9% 1,000 ML IV SCH ×2 (04:30→07:58)
[2020-07-16] MEDS: Ondansetron 4 MG/2 ML SDV IVPUSH ONE (04:35)
[2020-07-16] MEDS: Morphine 4 MG/ML Syringe IVPUSH ONE (04:37)
[2020-07-16 04:53] LABS: ANION GAP 16.1 mmol/L (5-15); CHLORIDE,CL 99 mmol/L (98-107); SODIUM,NA 130 mmol/L (136-145)
--- NOTE | 2020-07-16 04:53 | EDM.PDOC ---
<Renetta Reich - Last Filed: 07/16/20 13:26> ED HPI GENERAL MEDICAL PROBLEM - General Chief Complaint: Gastrointestinal Problem Stated Complaint: Abdominal pain, diarrhea Time Seen by Provider: 07/16/20 04:00 - Related Data Allergies Allergy/AdvReac Type Severity Reaction Status Date / Time No Known Allergies Allergy Verified 07/16/20 04:53 Home Meds: Home Meds Triamcinolone Acetonide [Kenalog 0.1% Crm] 1 applic TOP BID PRN 04/01/19 [History] Betamethasone Dipropionate [Diprosone 0.05% Oint] 1 applic TOP BID 04/22/20 [History] Nicotine [Habitrol] 21 mg TRDERM DAILY@1800 #30 patch 04/23/20 [Rx] Clobetasol [Clobetasol Propionate 0.05%] 1 applic TOP BID 07/15/20 [History] Famotidine 10 mg PO DAILY 07/15/20 [History] Furosemide [Lasix] 20 mg PO DAILY 07/15/20 [History] Gabapentin [Neurontin] 600 mg PO TID 07/15/20 [History] Lactulose [Cephulac] 10 gm PO BID 07/15/20 [History] Menthol/Methyl Salicylate [Icy Hot Cream] 1 applic TP ASDIRECTED 07/15/20 [History] Potassium Chloride [Klor-Con 10] 40 meq PO DAILY 07/15/20 [History] Spironolactone [Aldactone] 100 mg PO DAILY 07/15/20 [History] diphenhydrAMINE HCL [Diphenhydramine HCl] 25 mg PO DAILY 07/15/20 [History] Departure - Departure Disposition: DC/Tfer to Located Within [facility] 02 Clinical Impression: Colitis - Discharge Information Referrals: PCP,None [Ordering Only Provider] - Forms: ED Department Discharge, Interfacility Transfer EMTALA - Assessment/Plan Plan: Patient continues to remain in the emergency department due to bed constraints in [place]. Patient has been resting comfortably with no major issues. Patient recently developed worsening pain while in the emergency department. Orders for hydromorphone 1 mg IV was provided. VSS. Assessment findings unchanged from previous provider report. Will continue to monitor and assess as needed. <Sushil Blackmon - Last Filed: 07/18/20 08:24> ED HPI GENERAL MEDICAL PROBLEM - General Source of Information: Reports: Patient History Limitations: Reports: No Limitations - History of Present Illness INITIAL COMMENTS - FREE TEXT/NARRATIVE: Pt. presents to ER with complaints of continued abdominal pain nausea, vomiting, and diarrhea. She was seen in the ER yesterday for the same. At that time, she was treated for dehydration with several liters of normal saline, IV pain, medications, antiemetics and was discharged home after several hours. Pt. had lab work done at that time. She had no elevated white count our other worrisome lab findings far outside of her baseline. Pt. does have a history of alcoholic liver disease and cirrhosis. She underwent paracentesis on 06/21 under US guidance on 06/21 and is scheduled to undergo colonoscopy and and EGD. She has an appointment with GI tomorrow for intermittent abdominal pain. She had an abdominal US on 05/21 and found to have ascites and hepatomegaly. Gallbladder wall was thickened and sludge was noted. It was otherwise normal. She states that since she was discharged from the hospital this afternoon, she has developed onset of bloody stools. She states that she has one BM tonight that was accompanied with maroon colored blood. Denies any clots. Denies any coffee ground or black, tarry stools. She does have a history of esophageal va rices. Pt. states that the abdominal discomfort is diffuse in nature and does not localize to one specific area. Onset Date: 07/11/20 Location: Reports: Abdomen, Generalized whole abdomen Pain Score (Numeric/FACES): 9 Past Medical History Gastrointestinal History: Reports: Cirrhosis Genitourinary History: Reports: Other (See Below) Other Genitourinary History: dysfuncitonal uterine bleeding. atrophic vaginitis Musculoskeletal History: Reports: Other (See Below) Other Musculoskeletal History: pain in lower extremities Psychiatric History: Reports: Addiction Dermatologic History: Reports: Other (See Below) Other Dermatologic History: rash - Infectious Disease History Infectious Disease History: Reports: Chicken Pox - Past Surgical History Female Surgical History: Reports: Other (See Below) Other Female Surgeries/Procedures: abnormal pap Social & Family History - Family History Family Medical History: No Pertinent Family History Cardiac: Reports: Hypertension, Pacemaker Respiratory: Reports: Sleep Apnea - Caffeine Use Caffeine Use: Reports: Coffee, Soda - Living Situation & Occupation Living situation: Reports: Occupation: Unemployed (living with parents currently) ED ROS GENERAL - Review of Systems Review Of Systems: See Below Constitutional: Reports: No Symptoms HEENT: Reports: No Symptoms Respiratory: Reports: No Symptoms Cardiovascular: Reports: No Symptoms Endocrine: Reports: No Symptoms GI/Abdominal: Reports: Abdominal Pain, Bloody Stool : Reports: No Symptoms Musculoskeletal: Reports: No Symptoms Skin: Reports: No Symptoms Neurological: Reports: No Symptoms Psychiatric: Reports: No Symptoms Hematologic/Lymphatic: Reports: No Symptoms Immunologic: Reports: No Symptoms ED EXAM, GENERAL - Physical Exam Exam: See Below Exam Limited By: No Limitations General Appearance: Alert, WD/WN, No Apparent Distress Respiratory/Chest: No Respiratory Distress, Lungs Clear, Normal Breath Sounds, No Accessory Muscle Use, Chest Non-Tender Cardiovascular: Normal Peripheral Pulses, Regular Rate, Rhythm, No Edema, No JVD, No Murmur Peripheral Pulses: 4+: Radial (L) GI/Abdominal: Soft, Non-Tender, No Distention, No Mass (Female) Exam: Deferred Rectal (Female) Exam: Deferred Extremities: Normal Inspection, Normal Range of Motion, Non-Tender, No Pedal Edema, Normal Capillary Refill Neurological: Alert, Oriented, CN II-XII Intact, Normal Cognition, Normal Gait, Normal Reflexes, No Motor/Sensory Deficits Psychiatric: Normal Affect, Anxious, Tearful Skin Exam: Warm, Dry, Intact, No Rash, Jaundice Lymphatic: No Adenopathy Course - Vital Signs Last Recorded V/S: Last Vital Signs Temp 37.4 C 07/16/20 04:00 Pulse 106 H 07/16/20 04:00 Resp 20 07/16/20 04:00 BP 121/48 L 07/16/20 04:00 Pulse Ox 100 07/16/20 04:00 - Orders/Labs/Meds Labs: Laboratory Tests 07/16/20 07/16/20 07/16/20 Range/Units 04:30 04:30 04:30 WBC 9.1 (4.0-10.0) x10^3/uL RBC 2.38 L (4.00-5.50) x10^6/uL Hgb 8.6 L (12.0-16.0) g/dL Hct 25.5 L (33.0-47.0) % MCV 107.1 H (78.0-93.0) fL MCH 36.1 H (26.0-32.0) pg MCHC 33.7 (32.0-36.0) g/dL RDW Coeff of Deisy 16.5 H (10.0-15.0) % Plt Count 111 L (130-400) x10^3/uL Neut % (Auto) 68.9 (50.0-80.0) % Lymph % (Auto) 13.1 L (25.0-50.0) % [place] % (Auto) 16.6 H (2.0-11.0) % Eos % (Auto) 1.0 (0.0-4.0) % Baso % (Auto) 0.4 (0.2-1.2) % PT 17.6 H (9.9-12.5) SEC INR 1.6 L (2.0-3.5) APTT (25.6-32.8) SEC Sodium 130 L (136-145) mmol/L Potassium 4.1 (3.5-5.1) mmol/L Chloride 99 (98-107) mmol/L Carbon Dioxide 19 L (21-32) mmol/L Anion Gap 16.1 H (5-15) mmol/L BUN 21 H (7-18) mg/dL Creatinine 1.1 H (0.55-1.02) mg/dL Est Cr Clr Drug Dosing TNP Estimated GFR (MDRD) 52 Glucose 103 H (70-99) mg/dL Lactic Acid (0.4-2.0) mmol/L Calcium 8.8 (8.5-10.1) mg/dL Corrected Calcium 10.2 H (8.5-10.1) mg/dL Total Bilirubin 8.5 H (0.2-1.0) mg/dL AST 55 H (15-37) U/L ALT 21 (14-59) U/L Alkaline Phosphatase 84 (46-116) U/L Total Protein 7.5 (6.4-8.2) g/dL Albumin 2.3 L (3.4-5.0) g/dL Globulin 5.2 Albumin/Globulin Ratio 0.44 07/16/20 07/16/20 07/16/20 Range/Units 04:30 04:30 08:25 WBC (4.0-10.0) x10^3/uL RBC (4.00-5.50) x10^6/uL Hgb (12.0-16.0) g/dL Hct (33.0-47.0) % MCV (78.0-93.0) fL MCH (26.0-32.0) pg MCHC (32.0-36.0) g/dL RDW Coeff of Deisy (10.0-15.0) % Plt Count (130-400) x10^3/uL Neut % (Auto) (50.0-80.0) % Lymph % (Auto) (25.0-50.0) % [place] % (Auto) (2.0-11.0) % Eos % (Auto) (0.0-4.0) % Baso % (Auto) (0.2-1.2) % PT (9.9-12.5) SEC INR (2.0-3.5) APTT 31.9 (25.6-32.8) SEC Sodium (136-145) mmol/L Potassium (3.5-5.1) mmol/L Chloride (98-107) mmol/L Carbon Dioxide (21-32) mmol/L Anion Gap (5-15) mmol/L BUN (7-18) mg/dL Creatinine (0.55-1.02) mg/dL Est Cr Clr Drug Dosing Estimated GFR (MDRD) Glucose (70-99) mg/dL Lactic Acid 4.0 H* 2.1 H* (0.4-2.0) mmol/L Calcium (8.5-10.1) mg/dL Corrected Calcium (8.5-10.1) mg/dL Total Bilirubin (0.2-1.0) mg/dL AST (15-37) U/L ALT (14-59) U/L Alkaline Phosphatase (46-116) U/L Total Protein (6.4-8.2) g/dL Albumin (3.4-5.0) g/dL Globulin Albumin/Globulin Ratio Meds: Medications Discontinued Medications Generic Name Dose Route Start Last Admin Trade Name Freq PRN Reason Stop Dose Admin Hydromorphone HCl 1 mg 07/16/20 05:50 07/16/20 06:08 Hydromorphone 1 Mg/Ml Syringe IVPUSH 07/16/20 05:51 1 mg ONETIME ONE Administration Hydromorphone HCl 1 mg 07/16/20 13:26 07/16/20 13:29 Hydromorphone 1 Mg/Ml Syringe IVPUSH 07/16/20 13:27 1 mg ONETIME ONE Administration Sodium Chloride 1,000 mls @ 250 mls/hr 07/16/20 04:30 07/16/20 04:30 Normal Saline IV 250 mls/hr ASDIRECTED ROSANNA Administration Piperacillin Sod/Tazobactam 100 mls @ 200 mls/hr 07/16/20 06:20 07/16/20 13:27 Sod 3.375 gm/ Sodium Chloride IV 07/16/20 06:49 Not Given STAT ONE Sodium Chloride 1,000 mls @ 150 mls/hr 07/16/20 07:30 07/16/20 07:58 Normal Saline IV 150 mls/hr ASDIRECTED ROSANNA Administration Iopamidol 100 ml 07/16/20 05:52 07/16/20 05:55 Iopamidol 612 Mg/Ml 100 Ml Bottle IVPUSH 07/16/20 05:53 100 ml ONETIME ONE Administration Morphine Sulfate 4 mg 07/16/20 04:19 07/16/20 04:37 Morphine 4 Mg/Ml Syringe IVPUSH 07/16/20 04:20 4 mg ONETIME ONE Administration Nicotine 21 mg 07/16/20 16:45 07/16/20 16:44 Nicotine 21 Mg/24 Hr Patch TRDERM 07/16/20 16:46 21 mg ONETIME ONE Administration Ondansetron HCl 4 mg 07/16/20 04:19 07/16/20 04:35 Ondansetron 4 Mg/2 Ml Sdv IVPUSH 07/16/20 04:20 4 mg ONETIME ONE Administration Sodium Chloride 10 ml 07/16/20 04:13 Sodium Chloride 0.9% 10 Ml Syringe FLUSH ASDIRECTED PRN Keep Vein Open Vancomycin HCl 125 mg 07/16/20 08:00 07/16/20 07:28 Vancomycin 125 Mg Cap PO 125 mg QID ROSANNA Administration - Radiology Interpretation Free Text/Narrative:: pancolitis noted from mid transverse colon to sigmoid colon. - Re-Assessments/Exams Free Text/Narrative Re-Assessment/Exam: IV access established. Pt. was given a liter of normal saline, zofran 4mg IV. Pain was treated with IV morphine and dilaudid. Discussed findings with Dr. Caicedo, hospitalist at [facility]. He advised holding off on IV antibiotics at this time and starting the patient on oral vancomycin. [facility] is on diversion and accepted the patient but she will need to be held here until after discharges this AM. Departure - Departure Time of Disposition: 17:20
[2020-07-16] MEDS: Iopamidol 612 MG/ML 100 ML Bottle IVPUSH ONE (05:55)
[2020-07-16] MEDS: HYDROmorphone 1 MG/ML Syringe IVPUSH ONE ×2 (06:08→13:29)
[2020-07-16] MEDS: Vancomycin 125 MG Cap PO SCH (07:28)
--- NOTE | 2020-07-16 08:32 | CT ---
[id number] CT/CT Abdomen Pelvis W IV EXAM: CT Abdomen Pelvis W IV CLINICAL DATA: ABDOMINAL PAIN, LOWER GI BLEEDING COMPARISON STUDY: April 26, 2020. FINDINGS: Hepatomegaly with diffusely heterogeneous parenchymal attenuation and enhancement. No focal lesion. Gallbladder is distended with wall thickening as well. Common bile duct is normal in caliber. No sonographically evident cholelithiasis or choledocholithiasis. Pancreas, adrenal glands, and kidneys are unremarkable. Spleen is enlarged. There are varices in the upper abdomen, including gastroesophageal varices. Recanalization of umbilical vein. Trace amount of perihepatic ascites. Wall thickening diffusely throughout the colon most prominent in the descending and sigmoid segments. Findings extend into the rectum as well. There is stranding in the mesorectal soft tissues. There is prominent vasculature in the mesorectal soft tissues and wall of the low rectum. Findings are most consistent with varices and possibly account for GI bleeding. 17 x 17 x 14 mm exophytic subserosal fibroid arising from the dorsal aspect of the uterus. Uterus and adnexal regions are unremarkable. Urinary bladder is unremarkable. Spondylosis. No acute fracture or compression deformity. Benign-appearing enchondroma in the left femoral neck. IMPRESSION: Hepatocellular disease, including hepatomegaly and portal hypertension. Findings include gastroesophageal varices and recanalization of umbilical vein. Wall thickening throughout the colon and rectum, most prominent in the descending and sigmoid segments of the colon. Stranding in the mesorectal soft tissues as well. Colonic wall thickening can be seen as sequela of portal hypertension. However, involvement of the distal colon and rectum suggests possible changes of underlying proctocolitis. Correlate for infectious or inflammatory etiology. Distended gallbladder without evidence of acute cholecystitis. Other findings are described above. Agustin Westbrook MD 07/16/20 0831 Thank you for allowing us to participate in the care of your patient.
[2020-07-16] MEDS: Piperacillin/Tazobactam 3.375 GM in Sodium Chloride 0.9% 100 ML IV ONE (13:27)
[2020-07-16] MEDS: Nicotine 21 MG/24 Hr Patch TRDERM ONE (16:44)
== END 2020-07-16 17:20 | disposition short-term general hospital (02) ==
LOC: VM.ED 04:00
DX: K52.9 Noninfective gastroenteritis and colitis, unspecified (principal); Z79.899 Other long term (current) drug therapy
CPT/HCPCS: 36415; 74177; 80053; 83605; 85025; 85610; 85730; 96374; 96375; 96376; 99285; A9270; J1170; J2270; J2405; J7030; Q9967; 82271